=== PATIENT | male | born 1965 ===

== ENCOUNTER 2016-06-24 10:42 | Outpatient (CLI) | payer OTHER | END 2016-06-24 23:59 | disposition home or self-care (01) | LOC: MRI 10:42 | DX: M50.31 Other cervical disc degeneration, high cervical region (principal); M19.012 Primary osteoarthritis, left shoulder; M25.512 Pain in left shoulder; M75.91 Shoulder lesion, unspecified, right shoulder; M48.02 Spinal stenosis, cervical region | CPT/HCPCS: 72141-TC; 73221-TC ==